=== PATIENT | female | born 1990 | race Caucasian/White ===

== ENCOUNTER 2021-08-09 07:30 | Inpatient (IN) ==
[2021-08-09] MEDS ORDERED: OXYTOCIN 30 UNITS/500 ML BAG IV PRN (08:32)
[2021-08-09] MEDS ORDERED: PENICILLIN G POTASSIUM 6 MU in DEXTROSE 5% 250 ML IV STA (08:36)
[2021-08-09] MEDS: LACTATED RINGER'S 1,000 ML IV PRN ×3 (08:51→23:45)
[2021-08-09] MEDS: OXYTOCIN 30 UNITS/500 ML BAG IV PRN ×2 (09:04→15:51)
--- NOTE | 2021-08-09 09:27 | History & Physical Report ---
Date of Service August 09, 2021 Assessment & Plan (1) Encounter for induction of labor: Plan: 31 y/o at 40 weeks and 2 days coming in for IOL. -Augustin bulb placed. -Started on pitocin and penicillin G. -Vitals WNL. -Continue to monitor heart tracings. (2) Gestational diabetes mellitus (GDM) affecting , antepartum: Admission and Anticipated Discharge Date Admission Date: August 09, 2021 History of Present Illness Chief Complaint: IOL Primary Care Provider: DEREK PCP 31 year old 40 weeks 2 days confirmed via LMP. Complications to include gestational diabetes controlled by diet. Here for IOL. Patient attended OB appointments regularly. Patient taking medications vitamin. Contractions: Denies Fluid or blood: Denies Movement: Present. Allergies Allergy/AdvReac Type Severity Reaction Status Date / Time No Known Allergies Allergy Verified 08/08/21 11:11 Home Medications Medication Instructions Recorded Confirmed Type prenat.vits,tulio,[id number] 1 tab PO DAILY 12/23/20 08/08/21 History acetone (urine) test (Ketone Urine #50 ea 05/26/21 08/08/21 Rx Test) blood sugar diagnostic (OneTouch #150 ea 05/26/21 08/08/21 Rx Verio test strips) blood-glucose meter (OneTouch #1 ea 05/26/21 08/08/21 Rx Verio Flex meter) lancets 33 gauge (OneTouch Delica #150 ea 05/26/21 08/08/21 Rx Plus Lancet) Patient History Medical History (Updated 08/09/21 @ 09:23 by Elliot Hernandez DO) History of chicken pox Status post hysteroscopy Surgical History (Updated 12/23/20 @ 16:20 by Renee Barrientos) S/P gastric bypass S/P laparoscopy S/P tonsillectomy Family History (Updated 12/23/20 @ 16:07 by Renee Barrientos) Mother Diabetes Grandmother (Maternal) Diabetes Denies family history of Ovarian cancer Breast cancer Colorectal cancer Social History (Updated 12/23/20 @ 16:09 by Renee Barrientos) Smoking Status: Former smoker Second Hand Exposure: No; Do You Dip or Chew Tobacco: No; Tobacco Cessation Education Requested by Patient: No Hx Alcohol Use: No Hx Substance Use: No Preferred Language: Greek Communication Ability: Effective Outside Machinist Supervisor Required: No Beliefs That Will Affect Care: None marital status: marital status details: Steven Quiroga (26) [phone] Current Living Situation: Spouse Current Living Situation Comment: Lives with spouse and 1 dog current occupational status: employed 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 Review of Systems Denies fever, chills, sweats Denies shortness of breath, difficulty breathing, chest pain, palpitations, chest pressure. Denies breast pain. Denies dysuria. Denies headache or changes in vision Physical Exam Physical Exam: General: Alert, oriented. No acute distress. Cardiac: Regular rate and rhythm, no murmurs/rubs/gallops. Respiratory: Clear to auscultation bilaterally a/p, no wheezes/rales/rhonchi. No increased work of breathing. Symmetrical chest rise. No respiratory distress. Lower Extremities: No lower extremity edema or swelling. No deep calf pain. Lazaro's negative bilaterally Results & Data ([facility]) Vital Signs (Past 12 Hours) Vital Signs Temp Pulse Resp BP Pulse Ox 08/09/21 09:07 76 108/73 08/09/21 08:53 72 142/59 H 08/09/21 07:48 37.1 C 100 H 16 114/71 100 08/09/21 07:46 100 H 114/71 Laboratory Results - Blood type A+ - Antibody screen: negative - Rubella Immune - VDRL/RPR: Nonreactive - Gonorrhea: Negative - Chlamydia: Negative - HIV: Negative - HbSAg: Negative - GBS: Positive - Glucose tolerance: 131 Monitoring External Monitor FHR: 140 Accel: Present Decel: Not present Contractions: Not present. Resident Activity Tracking Resident Involvement: Resident Care Provided Care Provided: OB Delivery
[2021-08-09 09:29] LABS: Hematocrit (blood only) 32.1 % (37-47); Hemoglobin 10.2 g/dL (12.0-16.0); Mean Corpuscular Hemoglobin 25.3 pg (25-34); Mean Corpuscular Hgb Conc 31.8 g/dL (32-36); Mean Corpuscular Volume 79.7 fL (80-100); Mean Platelet Volume 10.3 fL (7.4-10.4); Platelet Count 299 K/uL (130-400); RDW Coefficient of Variation 15.2 % (11.5-14.5); RDW Standard Deviation 44.5 fL (36.4-46.3); Red Blood Count 4.03 M/uL (4.2-5.4); White Blood Count 7.58 K/uL (4.8-10.8)
[2021-08-09] MEDS: PENICILLIN G POTASSIUM 3 MU in DEXTROSE 5% 100 ML IV PRN ×3 (13:05→21:16)
[2021-08-09] MEDS ORDERED: ePHEDrine sulfate 50 MG/ML AMP ONE (19:15)
[2021-08-09] MEDS ORDERED: SODIUM CHLORIDE 0.9% INJ 10 ML VIAL ONE (19:16)
[2021-08-09] MEDS ORDERED: fentaNYL citrate 100 MCG/2 ML VIAL ONE (19:16)
[2021-08-09] MEDS ORDERED: BUPIVACAINE 0.25% 30 ML VIAL ONE (19:16)
[2021-08-09] MEDS ORDERED: fentaNYL 2MCG/ML ROPIVACAINE 1.25MG/ML 100 ML BAG EPI ONE (19:16)
[2021-08-09] MEDS ORDERED: NALOXONE HCL 0.4 MG/1 ML VIAL/CARP IV PRN (19:34)
[2021-08-09] MEDS ORDERED: NALOXONE HCL 1 MG in SODIUM CHLORIDE 0.9% 1000ML 1,000 ML IV PRN (19:34)
[2021-08-09] MEDS ORDERED: ePHEDrine sulfate 50 MG/ML AMP IV PRN (19:34)
[2021-08-09] MEDS ORDERED: NALBUPHINE HCL INJ 10 MG/ML AMP IV PRN (19:34)
[2021-08-09] MEDS ORDERED: ONDANSETRON INJ 2 MG/ML 2 ML VIAL IV PRN (19:34)
[2021-08-09] MEDS ORDERED: diphenhydrAMINE 50 MG/ML VIAL IV PRN (19:34)
--- NOTE | 2021-08-09 19:35 | Anesthesiology Consultation ---
Date of Service August 09, 2021 Assessment & Plan (1) Encounter for pre-operative examination: Chart Review Chart Review: Patient NOT seen in Pre Admission Testing and Acceptable Risk for Labor Epidural Consults Requested none History Height/Weight Height: 5 ft 4 in Weight: 103.873 kg Allergies Allergy/AdvReac Type Severity Reaction Status Date / Time No Known Allergies Allergy Verified 08/08/21 11:11 Medications Home Medications Medication Instructions Recorded Confirmed Last Taken prenat.vits,tulio,[id number]-zwry-ptydh 1 tab PO DAILY 12/23/20 08/09/21 08/09/21 05:00 acetone (urine) test (Ketone Urine #50 ea 05/26/21 08/08/21 Unknown Test) blood sugar diagnostic (OneTouch #150 ea 05/26/21 08/08/21 Unknown Verio test strips) blood-glucose meter (OneTouch #1 ea 05/26/21 08/08/21 Unknown Verio Flex meter) lancets 33 gauge (OneTouch Delica #150 ea 05/26/21 08/08/21 Unknown Plus Lancet) Active Medications Generic Name Dose Route Start Last Admin Trade Name Freq PRN Reason Stop Dose Admin Lactated Ringer's 1,000 mls @ 125 mls/hr 08/09/21 08:32 08/09/21 19:20 Lr IV 08/11/21 08:31 999 mls/hr .Q8H PRN Administration L&D Protocol Protocol Penicillin G Potassium 3 mu/ 106 mls @ 100 mls/hr 08/09/21 11:32 08/09/21 17:11 Dextrose IV 08/19/21 11:31 100 mls/hr Q4H PRN Administration GBS(+) Until Delivery Oxytocin 30 units in 500 mls @ 26 mls/hr 08/09/21 08:33 08/09/21 15:51 Pitocin IV 08/11/21 08:32 1.56 units/hr .[id number] PRN 26 mls/hr Labor Induction/Augmentation Administration Protocol 1.56 UNITS/HR Past Medical History Medical History History of chicken pox Status post hysteroscopy Past Family History Family History Mother Diabetes Grandmother (Maternal) Diabetes Denies family history of Ovarian cancer Breast cancer Colorectal cancer Past Surgical History Surgical History S/P gastric bypass S/P laparoscopy S/P tonsillectomy Past Anesthesia History No Hx of Anesthesia Complications and No Family Hx of Anesthesia Complications History of PONV No Hx of PONV and No Hx of Motion Sickness Social History Smoking Status: Former smoker Do You Dip or Chew Tobacco: No Hx Alcohol Use: No Hx Substance Use: No substance use type: does not use Physical Exam Vital Signs Last Vital Signs Temp 37.3 C 08/09/21 19:29 Pulse 82 08/09/21 19:57 Resp 18 08/09/21 19:29 BP 125/68 08/09/21 19:37 Pulse Ox 94 08/09/21 19:57 Testing Laboratory Results 08/09/21 08:58
[2021-08-09] MEDS: fentaNYL 2MCG/ML ROPIVACAINE 1.25MG/ML 100 ML BAG EPI PRN (20:02)
[2021-08-10] MEDS: PENICILLIN G POTASSIUM 3 MU in DEXTROSE 5% 100 ML IV PRN ×3 (01:41→09:43)
[2021-08-10] MEDS ORDERED: Nursing to Pharmacy Communication SCH (04:45)
--- NOTE | 2021-08-10 05:22 | Labor Progress Brief Note ---
Date of Service August 10, 2021 Long reviewed with the patient of her current situation and texture she is now 6 cm of the at the cervix stretches somewhat more to the patient's left side there is some caput palpated however the cervix is relatively thin and 90% effaced the heart rate is category 1 at this time I did relay my concerns that there has been slow progress however her uterine contractions have not been adequate until very recently. We are at 32 milliunits on Pitocin and the most recent EPOCH-R of 10 minutes I was able to get 215 [place] units I do not think she meets criteria for failure to progress because there has not only been progress recently but her contractions have only been adequate as a very recent. Will continue to increase on the Pitocin up to 36 milliunits I did offer the patient at this stage to stop the process and perform a however I think this would be premature in both the patient and her ag beatriz that they would like to continue induction with aiming for adequate contractions by the IUPC. We reviewed the process of labor induction adequate contractions. Assessment & Plan Admission and Anticipated Discharge Date Admission Date: August 09, 2021 Results & Data ([facility]) Vital Signs (Past 12 Hours) Vital Signs Temp Pulse Resp BP Pulse Ox 08/10/21 05:15 90 106/55 L 08/10/21 05:12 88 99 08/10/21 05:07 81 99 08/10/21 05:02 96 H 97 08/10/21 05:00 78 100/50 L 08/10/21 04:57 81 99 08/10/21 04:52 87 99 08/10/21 04:47 81 99 08/10/21 04:46 83 110/57 L 08/10/21 04:42 81 100 08/10/21 04:37 86 99 08/10/21 04:32 105 H 100 08/10/21 04:30 112 H 122/58 L 08/10/21 04:29 98.2 F 18 08/10/21 04:27 98 H 100 08/10/21 04:22 78 99 08/10/21 04:17 77 99 08/10/21 04:15 77 121/56 L 08/10/21 04:12 80 99 08/10/21 04:07 78 98 08/10/21 04:02 77 98 08/10/21 04:00 75 118/58 L 08/10/21 03:57 80 98 08/10/21 03:52 77 99 08/10/21 03:47 80 99 08/10/21 03:46 75 120/56 L 08/10/21 03:42 79 99 08/10/21 03:37 75 99 08/10/21 03:32 75 99 08/10/21 03:30 82 118/56 L 08/10/21 03:27 76 98 08/10/21 03:22 82 98 08/10/21 03:17 76 98 08/10/21 03:16 75 119/55 L 08/10/21 03:12 82 98 08/10/21 03:07 88 99 08/10/21 03:02 80 99 08/10/21 03:00 84 115/56 L 08/10/21 02:57 82 98 08/10/21 02:52 80 99 08/10/21 02:47 71 99 08/10/21 02:45 81 108/57 L 08/10/21 02:42 75 100 08/10/21 02:37 80 98 08/10/21 02:32 76 98 08/10/21 02:30 77 103/53 L 08/10/21 02:27 74 98 08/10/21 02:22 74 99 08/10/21 02:17 94 H 99 08/10/21 02:15 78 95/52 L 08/10/21 02:12 79 99 08/10/21 02:07 76 99 08/10/21 02:02 72 99 08/10/21 02:00 98.2 F 73 87/51 L 08/10/21 01:57 75 100 08/10/21 01:52 73 100 08/10/21 01:47 73 99 08/10/21 01:45 78 96/54 L 08/10/21 01:42 75 100 08/10/21 01:37 73 100 08/10/21 01:32 73 100 08/10/21 01:30 74 95/50 L 08/10/21 01:27 76 100 08/10/21 01:22 86 100 08/10/21 01:17 73 98 08/10/21 01:15 74 86/51 L 08/10/21 01:12 75 98 08/10/21 01:07 77 98 05/12/22 01:02 75 98 08/10/21 01:00 73 95/44 L 08/10/21 00:57 73 97 08/10/21 00:52 76 97 08/10/21 00:47 74 99 08/10/21 00:46 71 89/48 L 08/10/21 00:42 77 98 08/10/21 00:37 70 98 08/10/21 00:32 68 99 08/10/21 00:30 71 87/48 L 08/10/21 00:29 18 08/10/21 00:27 77 98 08/10/21 00:22 82 99 08/10/21 00:17 68 99 08/10/21 00:15 72 93/47 L 08/10/21 00:12 68 100 08/10/21 00:07 70 100 08/10/21 00:02 70 92/46 L 99 08/09/21 23:57 70 100 08/09/21 23:56 97.9 F 18 08/09/21 23:52 78 100 08/09/21 23:51 82 91 08/09/21 23:47 78 136/70 100 08/09/21 23:45 73 91 08/09/21 23:42 72 100 08/09/21 23:37 69 100 08/09/21 23:32 70 100 08/09/21 23:30 74 120/66 08/09/21 23:27 68 100 08/09/21 23:22 68 100 08/09/21 23:17 66 100 08/09/21 23:15 72 119/63 08/09/21 23:12 70 100 08/09/21 23:07 69 100 08/09/21 23:02 70 100 08/09/21 23:00 68 120/61 08/09/21 22:57 67 16 100 08/09/21 22:52 66 100 08/09/21 22:47 65 100 05 22:46 65 121/64 05 22:42 63 100 08/09/21 22:37 63 100 08/09/21 22:32 64 100 08/09/21 22:31 65 130/84 08/09/21 22:27 64 99 08/09/21 22:22 67 100 08/09/21 22:17 67 100 08/09/21 22:16 65 132/64 08/09/21 22:12 67 100 08/09/21 22:11 76 91 08/09/21 22:10 98.2 F 18 08/09/21 22:07 76 100 08/09/21 22:02 71 100 08/09/21 22:01 66 131/73 08/09/21 21:57 69 100 08/09/21 21:52 66 100 08/09/21 21:47 67 100 08/09/21 21:45 63 133/70 08/09/21 21:42 64 100 08/09/21 21:37 66 100 08/09/21 21:32 66 100 08/09/21 21:31 18 08/09/21 21:30 61 138/72 08/09/21 21:27 80 91 08/09/21 21:22 66 100 08/09/21 21:17 67 100 08/09/21 21:15 68 08/09/21 21:12 69 100 08/09/21 21:07 68 99 08/09/21 21:02 70 100 08/09/21 21:01 18 08/09/21 21:00 66 120/56 L 08/09/21 20:57 70 100 08/09/21 20:52 68 100 08/09/21 20:47 73 100 08/09/21 20:46 73 107/55 L 08/09/21 20:42 63 100 08/09/21 20:37 74 100 08/09/21 20:32 66 100 08/09/21 20:31 18 08/09/21 20:29 67 134/71 08/09/21 20:27 68 139/72 100 08/09/21 20:25 83 139/72 08/09/21 20:23 63 139/78 08/09/21 20:22 72 100 08/09/21 20:21 69 132/77 08/09/21 20:19 79 135/82 08/09/21 20:17 74 130/75 100 08/09/21 20:15 72 18 137/78 08/09/21 20:13 74 124/65 08/09/21 20:12 73 100 08/09/21 20:11 90 123/59 L 08/09/21 20:10 73 18 91 05/11/22 20:09 74 117/62 08/09/21 20:07 80 127/74 99 08/09/21 20:05 84 18 125/66 08/09/21 20:03 68 134/72 08/09/21 20:02 74 100 08/09/21 20:01 75 117/64 08/09/21 20:00 18 08/09/21 19:59 80 114/63 08/09/21 19:58 82 132/58 L 08/09/21 19:57 81 100 08/09/21 19:52 82 100 08/09/21 19:47 79 100 08/09/21 19:42 72 100 08/09/21 19:37 74 125/68 100 08/09/21 19:32 82 97 08/09/21 19:31 84 92 08/09/21 19:29 99.1 F 18 08/09/21 19:27 72 100 08/09/21 19:22 68 124/67 08/09/21 18:52 81 116/57 L 08/09/21 18:39 75 122/64 08/09/21 18:30 97.9 F 18 08/09/21 18:22 113 H 183/118 H 08/09/21 17:57 81 129/94 08/09/21 17:37 71 116/66 08/09/21 17:22 79 118/79 Coding Level of Care Code None
[2021-08-10] MEDS: fentaNYL 2MCG/ML ROPIVACAINE 1.25MG/ML 100 ML BAG EPI PRN (05:26)
--- NOTE | 2021-08-10 09:05 | Labor Progress Brief Note ---
Date of Service August 10, 2021 Subjective Comfortable, sleeping. Epidural working well with repositioning. Awakened to introduce myself as the oncoming physician, patient with no urge to push, would like to labor down and rest a while before second stage. Patient is very interested in vaginal delivery, hoping to avoid , has mentioned this to her care team during this visit. Assessment & Plan (1) Encounter for induction of labor: Plan: IOL with pitocin, high doses have been required to achieve full dilation, and patient hoping to labor down rather than begin second stage. GDM diet controlled, not having ongoing glucose checks during this admission so far. Will check one before second stage. Admission and Anticipated Discharge Date Admission Date: August 09, 2021 Physical Exam Genitourinary: FHT Cat 1 [place] Q2 at times, with longer intervals at times. Pit @ [address]. Cvx not re-examined at this time, found to be complete per Dr. Moya just prior to the 0730 . Results & Data ([facility]) Vital Signs (Past 12 Hours) Vital Signs Temp Pulse Resp BP Pulse Ox 08/10/21 08:53 83 91 08/10/21 08:52 80 100 08/10/21 08:47 76 100 08/10/21 08:44 81 106/62 08/10/21 08:42 73 100 08/10/21 08:37 73 100 08/10/21 08:32 77 100 08/10/21 08:30 77 108/57 L 08/10/21 08:27 71 100 08/10/21 08:22 71 100 08/10/21 08:17 76 100 08/10/21 08:15 77 101/58 L 08/10/21 08:12 73 100 08/10/21 08:07 71 100 08/10/21 08:02 70 100 08/10/21 08:00 71 109/59 L 08/10/21 07:57 71 100 08/10/21 07:52 69 100 08/10/21 07:47 83 100 08/10/21 07:46 80 118/58 L 08/10/21 07:42 85 100 08/10/21 07:37 72 100 08/10/21 07:33 73 92 08/10/21 07:32 75 98 08/10/21 07:30 71 106/58 L 08/10/21 07:27 74 100 08/10/21 07:22 73 100 08/10/21 07:17 73 100 08/10/21 07:15 98.1 F 20 08/10/21 07:14 74 100/57 L 08/10/21 07:12 73 100 08/10/21 07:07 73 100 08/10/21 07:02 76 100 08/10/21 07:00 71 102/58 L 08/10/21 06:57 71 100 08/10/21 06:52 70 99 08/10/21 06:47 70 100 08/10/21 06:46 73 111/55 L 08/10/21 06:42 73 100 08/10/21 06:37 75 100 08/10/21 06:32 73 100 08/10/21 06:31 18 08/10/21 06:30 76 105/60 08/10/21 06:27 76 100 08/10/21 06:22 81 99 08/10/21 06:17 74 100 08/10/21 06:14 80 105/62 08/10/21 06:12 80 100 08/10/21 06:07 76 100 08/10/21 06:02 71 100 08/10/21 06:00 75 102/57 L 08/10/21 05:57 72 100 08/10/21 05:52 72 99 08/10/21 05:47 72 99 08/10/21 05:45 71 96/56 L 08/10/21 05:42 72 99 08/10/21 05:37 74 99 08/10/21 05:32 77 107/59 L 100 08/10/21 05:27 97 H 99 08/10/21 05:22 87 100 08/10/21 05:17 86 100 08/10/21 05:15 90 106/55 L 08/10/21 05:12 88 99 08/10/21 05:07 81 99 08/10/21 05:02 96 H 97 08/10/21 05:01 97.7 F 18 08/10/21 05:00 78 100/50 L 08/10/21 04:57 81 99 08/10/21 04:52 87 99 08/10/21 04:47 81 99 08/10/21 04:46 83 110/57 L 08/10/21 04:42 81 100 08/10/21 04:37 86 99 08/10/21 04:32 105 H 100 08/10/21 04:30 112 H 122/58 L 08/10/21 04:29 98.2 F 18 08/10/21 04:27 98 H 100 08/10/21 04:22 78 99 08/10/21 04:17 77 99 08/10/21 04:15 77 121/56 L 08/10/21 04:12 80 99 08/10/21 04:07 78 98 08/10/21 04:02 77 98 08/10/21 04:00 75 118/58 L 08/10/21 03:57 80 98 08/10/21 03:52 77 99 08/10/21 03:47 80 99 08/10/21 03:46 75 120/56 L 08/10/21 03:42 79 99 08/10/21 03:37 75 99 08/10/21 03:32 75 99 08/10/21 03:30 82 118/56 L 08/10/21 03:27 76 98 08/10/21 03:22 82 98 08/10/21 03:17 76 98 08/10/21 03:16 75 119/55 L 08/10/21 03:12 82 98 08/10/21 03:07 88 99 08/10/21 03:02 80 99 08/10/21 03:00 84 115/56 L 08/10/21 02:57 82 98 08/10/21 02:52 80 99 08/10/21 02:47 71 99 08/10/21 02:45 81 108/57 L 08/10/21 02:42 75 100 08/10/21 02:37 80 98 08/10/21 02:32 76 98 08/10/21 02:30 77 103/53 L 08/10/21 02:27 74 98 08/10/21 02:22 74 99 08/10/21 02:17 94 H 99 08/10/21 02:15 78 95/52 L 08/10/21 02:12 79 99 08/10/21 02:07 76 99 08/10/21 02:02 72 99 08/10/21 02:00 98.2 F 73 87/51 L 08/10/21 01:57 75 100 05/12/22 01:52 73 100 08/10/21 01:47 73 99 08/10/21 01:45 78 96/54 L 08/10/21 01:42 75 100 08/10/21 01:37 73 100 08/10/21 01:32 73 100 08/10/21 01:30 74 95/50 L 08/10/21 01:27 76 100 08/10/21 01:22 86 100 08/10/21 01:17 73 98 08/10/21 01:15 74 86/51 L 08/10/21 01:12 75 98 08/10/21 01:07 77 98 08/10/21 01:02 75 98 08/10/21 01:00 73 95/44 L 08/10/21 00:57 73 97 08/10/21 00:52 76 97 08/10/21 00:47 74 99 08/10/21 00:46 71 89/48 L 08/10/21 00:42 77 98 08/10/21 00:37 70 98 08/10/21 00:32 68 99 08/10/21 00:30 71 87/48 L 08/10/21 00:29 18 08/10/21 00:27 77 98 08/10/21 00:22 82 99 08/10/21 00:17 68 99 08/10/21 00:15 72 93/47 L 08/10/21 00:12 68 100 08/10/21 00:07 70 100 08/10/21 00:02 70 92/46 L 99 08/09/21 23:57 70 100 08/09/21 23:56 97.9 F 18 08/09/21 23:52 78 100 08/09/21 23:51 82 91 08/09/21 23:47 78 136/70 100 08/09/21 23:45 73 91 08/09/21 23:42 72 100 08/09/21 23:37 69 100 08/09/21 23:32 70 100 08/09/21 23:30 74 120/66 08/09/21 23:27 68 100 08/09/21 23:22 68 100 08/09/21 23:17 66 100 08/09/21 23:15 72 119/63 08/09/21 23:12 70 100 08/09/21 23:07 69 100 08/09/21 23:02 70 100 08/09/21 23:00 68 120/61 08/09/21 22:57 67 16 100 08/09/21 22:52 66 100 08/09/21 22:47 65 100 08/09/21 22:46 65 121/64 08/09/21 22:42 63 100 08/09/21 22:37 63 100 08/09/21 22:32 64 100 08/09/21 22:31 65 130/84 08/09/21 22:27 64 99 08/09/21 22:22 67 100 08/09/21 22:17 67 100 08/09/21 22:16 65 132/64 08/09/21 22:12 67 100 08/09/21 22:11 76 91 08/09/21 22:10 98.2 F 18 08/09/21 22:07 76 100 08/09/21 22:02 71 100 08/09/21 22:01 66 131/73 08/09/21 21:57 69 100 08/09/21 21:52 66 100 08/09/21 21:47 67 100 08/09/21 21:45 63 133/70 08/09/21 21:42 64 100 08/09/21 21:37 66 100 08/09/21 21:32 66 100 08/09/21 21:31 18 08/09/21 21:30 61 138/72 08/09/21 21:27 80 91 08/09/21 21:22 66 100 08/09/21 21:17 67 100 08/09/21 21:15 68 08/09/21 21:12 69 100 08/09/21 21:07 68 99 08/09/21 21:02 70 100 08/09/21 21:01 18 08/09/21 21:00 66 120/56 L 08/09/21 20:57 70 100 Coding Level of Care Code None Diagnoses Encounter for induction of labor Z34.90
--- NOTE | 2021-08-10 12:49 | Delivery Summary ---
Vaginal Delivery Summary Date of Service August 10, 2021 Vaginal Delivery Summary DIAGNOSES: 1. Culp intrauterine at 40w3d gestation. 2. Induction of Labor. 3. Group B Streptococcus Pos. PROCEDURE: Spontaneous vaginal delivery and repair of second degree laceration, R labial laceration. SURGEON: Ginger Villalobos MD. TOOLING SUPERVISOR: None. ESTIMATED BLOOD LOSS: 400 mL. COMPLICATIONS: None. PLACENTA: Spontaneous and intact with a 3-vessel cord. DISPOSITION: Stable to labor and delivery. DESCRIPTION: The patient pushed well and brought the head to in ZAIN position. The 's head was allowed to deliver with contraction force and no further active pushing, with the perineum protected during this time. There was no nuchal cord. The right shoulder was anterior. The shoulders and body delivered without any difficulty, and the infant was placed on the maternal abdomen. It was vigorous and moving all extremities, and making respiratory efforts. The cord was doubly clamped by the MD and then cut by the FOB. The placenta delivered spontaneously and was noted to be intact and with a 3VC. The cervix, vagina and perineum were examined and were found to have bilateral periurethral tears extending down into the vaginal canal, plus a second degree posterior vaginal laceration. The posterior vagina was repaired in usual manner using 2-0 vicryl suture in a running locked manner. The laceration ended at the juncture of the vagina and the perineum with no involvement of the perineal body, so no crown stitch was needed. The left periurethral laceration was hemostatic and did not require repair. The right periurethral laceration had a bleeding area at its deepest point, where it extended along the lateral wall of the vagina. This was therefore closed using 3-0 vicryl beginning at its deepest apex and proceeding outwards towards the labia, in a running locked fashion, with hemostasis being achieved during closure. The fundus was firm and lochia minimal immediately after delivery. [facility] Vaginal Delivery Charge Vaginal Delivery Codes: 52601 global code for the antepartum, delivery, and post-
[2021-08-10] MEDS ORDERED: ACETAMINOPHEN 325 MG TAB PO PRN (13:00)
[2021-08-10] MEDS ORDERED: BENZOCAINE 20% AER SPR 82.5 GM CAN EXT PRN (13:00)
[2021-08-10] MEDS ORDERED: DIPHTHERIA/TETANUS/PERTUSSIS 0.5 ML SYR/VIAL IM ONE (13:00)
[2021-08-10] MEDS ORDERED: HYDROCORTISONE ACETATE 25 MG SUPP PR PRN (13:00)
[2021-08-10] MEDS ORDERED: oxyCODONE/ACETAMINOPHEN 5mg/325mg TAB PO PRN (13:00)
--- NOTE | 2021-08-10 13:26 | Anesthesia Procedure Note ---
Date of Service August 10, 2021 Anesthesia Post Epidural Note Vital Signs Vital Signs: Temp Pulse Resp BP Pulse Ox 98.1 F 81 20 114/57 L 83 L 08/10/21 07:15 08/10/21 13:12 08/10/21 07:15 08/10/21 13:12 08/10/21 10:28 Pain Intensity Bilateral Abdomen: Pain Intensity: 9 Notes Mental Status: alert / awake / arousable and participated in evaluation Nausea / Vomiting: adequately controlled Pain: adequately controlled Airway Patency, RR, SpO2: stable & adequate BP & HR: stable & adequate Hydration State: stable & adequate Neuraxial Anesthesia: was administered and sensory block is resolving Anesthetic Complications: no major complications apparent and Pt Satisfied with anesthetic care Epidural: Removed without complications and With tip intact
[2021-08-10] MEDS: DOCUSATE SODIUM 100 MG CAP PO SCH (19:55)
--- NOTE | 2021-08-11 05:25 | Obstetrical Progress Note ---
Date of Service <Elliot Hernandez DO - Last Filed: 08/11/21 07:08> August 11, 2021 Assessment & Plan <Elliot Hernandez DO - Last Filed: 08/11/21 07:08> (1) Encounter for care and examination after delivery: 31 yo post day 1 from vaginal delivery, doing well. -Continue routine post care. -vital signs reviewed and WNL. (Tmax 37.3) -Blood type A+, GBS +, Rubella Immune -Encourage ambulation, monitor and control pain with Motrin, tylenol PRN, resume regular diet, monitor lochia. -encourage breast feeding. -Discussed discharge with patient, patient would like to go home today. Patient will follow up with Dr. Villalobos in office in 6 weeks. -Discharge pending peds given patient's GBS+ status. <Ginger Villalobos MD - Last Filed: 08/11/21 07:23> (1) Encounter for care and examination after delivery: Subjective <Elliot Hernandez DO - Last Filed: 08/11/21 07:08> Ambulation: ambulating normally Voiding: no voiding problems Passing Gas:: Yes Diet Tolerance:: regular diet Lochia:: Small Feeding Type:: breast feeding Current Pain Level(1-10): 0 Review of Systems Denies fever, chills, sweats Denies shortness of breath, difficulty breathing, chest pain, palpitations, chest pressure. Denies breast pain. Denies dysuria. Denies headache or changes in vision Physical Exam <DO Gege Lucero Last Filed: 08/11/21 07:08> General: Alert, oriented. No acute distress. Cardiac: Regular rate and rhythm, no murmurs/rubs/gallops. Respiratory: Clear to auscultation bilaterally a/p, no wheezes/rales/rhonchi. No increased work of breathing. Symmetrical chest rise. No respiratory distress. Abdomen: Soft, nontender, nondistended. Bowel sounds present. Uterus: Uterine fundus firm, palpable 1 cm below umbilicus. Lower Extremities: No deep calf pain. Results & Data ([facility]) <Elliot Hernandez DO - Last Filed: 08/11/21 07:08> Vital Signs (Past 12 Hours) Vital Signs Temp Pulse Resp BP Pulse Ox 08/11/21 02:51 36.8 C 75 16 96/65 L 96 08/10/21 23:00 36.6 C 74 16 105/69 99 08/10/21 19:08 36.9 C 88 16 127/75 100 <Ginger Villalobos MD - Last Filed: 08/11/21 07:23> Co-Signing Physician Notes Resident Physician Supervision Note: I interviewed and examined the patient. Discussed with Dr. Hernandez and agree with findings and plan as documented in the note. Any exceptions or clarifications are listed here: [ ] Documented By: Ginger Villalobos MD, FACOG Resident Activity Tracking <Elliot Hernandez DO - Last Filed: 08/11/21 07:08> Resident Involvement: Resident Care Provided Care Provided: OB Delivery
[2021-08-11 07:44] LABS: Hematocrit (blood only) 28.2 % (37-47); Mean Corpuscular Hemoglobin 25.4 pg (25-34); Mean Corpuscular Hgb Conc 31.9 g/dL (32-36); Mean Corpuscular Volume 79.4 fL (80-100); Mean Platelet Volume 10.7 fL (7.4-10.4); Platelet Count 290 K/uL (130-400); RDW Coefficient of Variation 15.3 % (11.5-14.5); RDW Standard Deviation 44.7 fL (36.4-46.3); Red Blood Count 3.55 M/uL (4.2-5.4); White Blood Count 14.26 K/uL (4.8-10.8)
[2021-08-11] MEDS ORDERED: PRENATAL VITAMIN 1 TAB PO SCH (08:00)
[2021-08-11] MEDS: IBUPROFEN 600 MG TAB PO PRN ×2 (08:20→13:29)
[2021-08-11] MEDS: DOCUSATE SODIUM 100 MG CAP PO SCH (08:20)
== END 2021-08-11 13:45 | disposition home or self-care (01) | DRG 807 ==
LOC: 4S1 07:30 → 4E2 08-10 16:10

== ENCOUNTER 2025-01-22 19:02 | Observation (INO) ==
[2025-01-22 19:56] LABS: Alanine Aminotransferase 9.0 U/L (7-52); Albumin Globulin Ratio 1.4 (0.9-2); Albumin Level 4.3 gm/dl (3.4-5.0); Alkaline Phosphatase 50.0 U/L (34-104); Anion Gap 8.0 (3-11); Bilirubin,Total 0.3 mg/dl (0.2-1.0); Blood Urea Nitrogen 11.0 mg/dl (6-23); Calcium 9.4 mg/dl (8.6-10.3); Carbon Dioxide 21.0 mmol/L (21-32); Chloride 107.0 mmol/L (98-107); Creatinine Clr Calc Pharmacy 170.7 ml/min; Globulin 3.1 gm/dl (2.5-4.0); Glucose 87.0 mg/dl (70-99(Fasting)); Potassium 3.5 mmol/L (3.5-5.1); Sodium 136.0 mmol/L (136-145); Total Protein 7.4 gm/dl (6.0-8.3)
[2025-01-22] MEDS ORDERED: SODIUM CHLORIDE 0.9% 100 ML IV PRN (20:02)
[2025-01-22 20:06] LABS: Hematocrit (blood only) 22.0 % (37.0-47.0); Hemoglobin 5.9 g/dl (12.0-16.0); Mean Corpuscular Hemoglobin 15.9 pg (25.0-34.0); Mean Corpuscular Volume 59.5 fL (80.0-100.0); Platelet Count 360 K/uL (130-400); RDW Standard Deviation 45.5 fL (36.4-46.3); Red Blood Count 3.70 M/uL (4.20-5.40); White Blood Count 9.84 K/ul (4.8-10.8)
[2025-01-22 20:23] LABS: INR 1.0 (0.9-1.1); Partial Thromboplastin Time 22 Seconds (21-31); Prothrombin Time 10.4 Seconds (9.0-12.0)
[2025-01-22 21:22] LABS: Iron 17.0 mcg/dl (35-150); Transferrin 445.0 mg/dl (200-360)
[2025-01-22 21:24] LABS: Total Iron Binding Cap Calc 623.0 mcg/dl (250-450); Transferrin (FE) Percent Satur 3.0 % (15-50)
[2025-01-22 21:42] LABS: Ferritin 2.9 ng/ml (8-388)
[2025-01-22 22:28] LABS: Folate (Folic Acid),Ser orPlas 12.43 ng/ml (>5.38); Vitamin B12 145.0 pg/ml (180-914)
--- NOTE | 2025-01-22 22:29 | Emergency Department Note ---
Impression & Plan Early stage of , 8 weeks gestation of , Anemia ED Provider Note CHIEF COMPLAINT: Low hemoglobin HISTORY OF PRESENTING ILLNESS: Patient is a 34-year-old female who presents to the emergency department today for complaints of low hemoglobin. She is 8 weeks 5 days and was seen by [facility] today and had routine lab work. Her hemoglobin was noted to be 5.9. She is 2 para 1. She denies any known bleeding and she denies any abdominal pain. She denies any lightheadedness, dizziness, shortness of breath, chest pain, headache, breathing difficulties. Patient denies chest pain, sob, breathing difficulties, abdominal pain, headache, fevers/chills, blood in stool or urine, any recent illness, or any recent travel. REVIEW OF SYSTEMS: See HPI for pertinent positives and pertinent negatives. ALLERGIES: See below MEDICATIONS: See below PAST MEDICAL HISTORY: See below PHYSICAL EXAM: VITALS: Vitals are noted on the nurse's note and reviewed by myself. GENERAL: Non toxic, in no acute distress, non-diaphoretic. SKIN: Capillary refill <2 sec. EYES: PERRLA. EOMI. Conjunctivae without injection, sclerae without icterus. HEART: Regular rate and rhythm without murmurs gallops or rubs. LUNGS: Clear to auscultation bilaterally without wheezes, rales or rhonchi. No retractions or accessory muscle use. ABDOMEN: Positive bowel sounds x 4. Normal tympanic percussion. Soft, nontender to palpation. MUSCULOSKELETAL: No gross musculoskeletal defects. NEURO: Patient was alert and oriented. No focal neurological deficits. DIFFERENTIAL DIAGNOSIS: Anemia, iron deficiency, gross bleeding, hemorrhage, miscarriage, among others. ED COURSE AND MEDICAL DECISION MAKING: HISTORY FROM INDEPENDENT HISTORIAN: History was provided by the patient. MONITOR: Continuous night monitor: Order was placed for continuous night monitor. Patient was placed on the night monitor and continuous pulse ox. Patient was noted to be in normal sinus rhythm at an initial rate of 80 bpm per my interpretation. INTERPRETATION OF LABS: I interpreted the labs with full lab results as below in the lab section of this note. Laboratory results pertinent to the emergent complaint are discussed in the MDM section below. The patient was advised to follow up with their PCP and/or specialist(s) for further outpatient monitoring and management of any abnormal results. INTERPRETATION OF IMAGING: Imaging studies were interpreted by myself and read by radiology as per the imaging section of this note. The patient was advised to follow up with their PCP and/or specialist(s) for further outpatient management of any non-emergent abnormal findings. CHRONIC MEDICAL/SOCIAL CONDITIONS AFFECTING CARE: No social concerns were identified as barriers to patients care. CONSULTATIONS: I had a meaningful discussion about this patient with Dr. Hernandez who agrees with my assessment and the treatment plan. I also consulted with Dr. James from [facility] who recommends admission to medicine as she is only 8 weeks . I also consulted with Dr. Ferraro for admission to the hospital. The patient was accepted. SUMMARY: I examined the patient for complaints of low hemoglobin. A physical exam and history were performed. Nursing notes, EMR, and medication list were personally reviewed. CBC showed no leukocytosis. There was an anemia with hemoglobin of 5.9. No thrombocytopenia. PT/INR and APTT were normal. CMP showed no emergent findings. Hemoccult was negative. Urinalysis showed no leukocytes, nitrates, bacteria. Patient did have an an OB ultrasound earlier today. 1 unit of PRBCs was ordered. Risks and benefits were discussed with the patient who verbalized understanding. Consent was signed. Patient did declined any pain medications or antiemetics here in the emergency department today. I consulted with OBGYN and Dr. Ferraro for admission to the hospital. I have personally spent 30 minutes of critical care time in the direct management of this patient. This includes bedside care, interpretation of diagnostic studies, and testing, discussion with consultants, patient, and family members, and other required patient management activities. This 30 minutes is in excess of all separately billable procedures. DIAGNOSIS: Anemia, 8 weeks TREATMENT PLAN/DISCHARGE INSTRUCTIONS: Admit to hospitalist services. The chart was completed utilizing [employer] Speech voice recognition software.Grammatical errors, random word insertions, pronoun errors, and incomplete sentences are an occasional consequence of this system due to software limitations, ambient noise, and hardware issues.Any formal questions or concerns about the content, text, or information contained within the body of this dictation should be directly addressed to the physician for clarification. Past Med/Surg History Problem List (Updated 01/22/25 @ 22:29 by HAMILTON Boykin) Anemia (Acute) 8 weeks gestation of (Acute) Anemia with 8 completed weeks gestation Gestational diabetes mellitus (GDM) affecting , antepartum Encounter for anatomic survey Early stage of (Acute) Elderly multigravida Obesity affecting , antepartum Medical History Status post hysteroscopy History of chicken pox Surgical History S/P gastric bypass S/P laparoscopy S/P tonsillectomy Family History Mother Diabetes Grandmother (Maternal) Diabetes Denies family history of Ovarian cancer Breast cancer Colorectal cancer Social History Smoking Status: Former smoker Second Hand Exposure: No; Do You Dip or Chew Tobacco: No; Hx Alcohol Use: No Hx Substance Use: No Preferred Language: Salvadorean Communication Ability: Effective Phlebotomist Medical Lab Assistant Required: No Beliefs That Will Affect Care: None marital status: marital status details: Steven Quiroga (30) [phone] Current Living Situation: Spouse and Family Current Living Situation Comment: Lives with spouse, child and 1 dog current occupational status: employed 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 Safe at Home: Yes Assistive Devices: None Allergies Allergies Allergy/AdvReac Type Severity Reaction Status Date / Time No Known Allergies Allergy Verified 01/22/25 14:28 Home Meds Home Medications Medication Instructions Recorded Confirmed PNV no.[id number] PO 01/11/25 01/22/25 [ Gummies] Results & Data (ED) Vital Signs Vital Signs - 24 hr 01/22/25 19:06 01/22/25 19:12 01/22/25 20:29 Temperature 36.6 C Temperature Source Oral Pulse Rate - Lying Pulse Rate - Sitting Pulse Rate - Standing Pulse Rate 93 H 78 Respiratory Rate Blood Pressure - Lying Blood Pressure - Sitting Blood Pressure- Standing Blood Pressure 139/74 Blood Pressure Mean 95 Pulse Oximetry 100 98 Oxygen Delivery Method Room Air Room Air Sepsis Recent Fever Within 48 Hours No Sepsis New/Unexplained Change in Mental Status No Sepsis Action Taken by Nursing No Action Required 01/22/25 21:02 01/22/25 21:49 01/22/25 22:06 Temperature 36.5 C 36.8 C Temperature Source Oral Oral Pulse Rate - Lying 87 Pulse Rate - Sitting 82 Pulse Rate - Standing 81 Pulse Rate 80 80 Respiratory Rate 16 16 Blood Pressure - Lying 113/63 Blood Pressure - Sitting 113/64 Blood Pressure- Standing 114/63 Blood Pressure 111/66 109/63 Blood Pressure Mean 81 78 Pulse Oximetry 100 99 Oxygen Delivery Method Sepsis Recent Fever Within 48 Hours Sepsis New/Unexplained Change in Mental Status Sepsis Action Taken by Nursing 01/22/25 22:21 Temperature 37.1 C Temperature Source Oral Pulse Rate - Lying Pulse Rate - Sitting Pulse Rate - Standing Pulse Rate 79 Respiratory Rate 18 Blood Pressure - Lying Blood Pressure - Sitting Blood Pressure- Standing Blood Pressure 114/65 Blood Pressure Mean 81 Pulse Oximetry 100 Oxygen Delivery Method Sepsis Recent Fever Within 48 Hours Sepsis New/Unexplained Change in Mental Status Sepsis Action Taken by Nursing Laboratory Data 01/22/25 19:02 01/22/25 19:02 Lab Results 01/22/25 01/22/25 Range/Units 19:02 19: WBC 9.84 (4.8-10.8) K/ul RBC 3.70 L (4.20-5.40) M/uL Hgb 5.9 L* (12.0-16.0) g/dl Hct 22.0 L (37.0-47.0) % MCV 59.5 L (80.0-100.0) fL MCH 15.9 L (25.0-34.0) pg MCHC 26.8 L (32.0-36.0) g/dL RDW Std Deviation 45.5 (36.4-46.3) fL RDW Coeff of Batool 23.1 H (11.5-14.5) % Plt Count 360 (130-400) K/uL MPV 9.8 (9.4-12.4) fL PT 10.4 (9.0-12.0) Seconds INR 1.0 (0.9-1.1) APTT 22 (21-31) Seconds PTT Ratio 0.8 Sodium 136 (136-145) mmol/L Potassium 3.5 (3.5-5.1) mmol/L Chloride 107 (98-107) mmol/L Carbon Dioxide 21 (21-32) mmol/L Anion Gap 8 (3-11) BUN 11 (6-23) mg/dl Creatinine 0.51 L (0.6-1.2) mg/dl Est Cr Clr Drug Dosing 170.7 ml/min eGFR 124.76 BUN/Creatinine Ratio 21.6 H (10-20) Glucose 87 (70-99(Fasting)) mg/dl Calcium 9.4 (8.6-10.3) mg/dl Iron 17 L (35-150) mcg/dl TIBC 623 H (250-450) mcg/dl Transferrin 445 H (200-360) mg/dl Transferrin % Sat 3 L (15-50) % Ferritin 2.9 L (8-388) ng/ml Total Bilirubin 0.3 (0.2-1.0) mg/dl AST 10 L (13-39) U/L ALT 9 (7-52) U/L Alkaline Phosphatase 50 (34-104) U/L Total Protein 7.4 (6.0-8.3) gm/dl Albumin 4.3 (3.4-5.0) gm/dl Globulin 3.1 (2.5-4.0) gm/dl Albumin/Globulin Ratio 1.4 (0.9-2) Vitamin B12 145 L (180-914) pg/ml Folate 12.43 (>5.38) ng/ml Blood Type A Positive Antibody Screen NEGATIVE Crossmatch See Detail Discharge Plan Visit Data Chief Complaint: Abnormal Labs/Diagnostic Testing Stated Complaint: BLOOD TRANSFUSION ED Provider: Ryland Hernandez ED Midlevel Provider: Gwendolyn Woodson Discharge Problem: Early stage of , 8 weeks gestation of , Anemia Patient Disposition: Admitted As Inpatient Condition: Good Prescriptions Prescriptions: No Action PNV no.[id number] [ Gummies] PO Referrals Referrals: PCP,NO [Primary Care Provider] - Discharge Problem: Anemia Qualifiers: Anemia type: unspecified type Qualified Code(s): D64.9 - Anemia, unspecified
--- NOTE | 2025-01-23 01:03 | History & Physical Report ---
Date of Service January 23, 2025 Assessment & Plan (1) Anemia: (2) 8 weeks gestation of : (3) S/P gastric bypass: Plan Patient is a 34-year-old female with a past medical history including gastric bypass and current (8 weeks 5 days). Patient was referred by her OB due to a hemoglobin of 5.9. #asymptomatic anemia - Hgb drop 9.0 -> 5.9, Hct 22.0%, BUN 11. Suspect competent of with chronic anemia with malabsorption of iron and B12 with gastric bypass. - ultrasound of abdomen to eval for retroperitoneal bleeding - iron panel, ferritin, b12, folate ordered - 1 u pRBC ordered in ED -> transfusing - H&H 1 hour after transfusion - repeat CBC with AM labs - Hemoccult ordered in ED #current gestation - 8w5d, ANTONIO 08/29/25. Hx of GDM with prior. - OB US 01/23 stable, shows subchorionic hemorrhage surrounding gestational sac #Hx gastric bypass - associated anemia as above. VTE ppx: SCDs, low risk and bleeding risk Dispo: med/tele; possible dc 01/23 Admission and Anticipated Discharge Date Admission Date: 01/23/25 History of Present Illness Chief Complaint: abnormal labs Primary Care Provider: NO PCP Patient is a 34-year-old female with a past medical history including gastric bypass and current (8 weeks 5 days). Patient was referred by her OB due to a hemoglobin of 5.9. Patient seen at bedside. She stated she has been completely asymptomatic of anemia however does endorse recent fatigue which she related to recent and having a 3-year-old at home. She denies any hematemesis, melena, hematochezia, vaginal bleeding, abdominal pain, nausea, vomiting, dizziness, lightheadedness. She stated she has never had a blood or iron transfusion before and has never had a noted history of anemia. Previous records reviewed and appear the patient was mildly anemic with recent with hemoglobin as low as 9.0 in 2021. She does not take any B12, iron, or folic acid supplements at baseline. She denies nicotine or alcohol use. She does not take any medications at baseline. She wishes to be full code. Discussion with ER provider They spoke with OB who recommended admission to medical team and could consult them as needed. Allergies Allergy/AdvReac Type Severity Reaction Status Date / Time No Known Allergies Allergy Verified 01/22/25 14:28 Home Medications Medication Instructions Recorded Confirmed Type PNV no.[id number] PO 01/11/25 01/22/25 History [ Gummies] cyanocobalamin (vitamin B-12) 1,000 mcg IM UD 4 weeks #25 mL 01/23/25 Rx 1,000 mcg/mL injection solution ferrous sulfate 325 mg (65 mg 325 mg PO DAILY #90 tabs 01/23/25 Rx iron) tablet Past Med/Surg History Problem List (Updated 01/22/25 @ 22:29 by HAMILTON Boykin) S/P gastric bypass Anemia (Acute) 8 weeks gestation of (Acute) Anemia with 8 completed weeks gestation Gestational diabetes mellitus (GDM) affecting , antepartum Encounter for anatomic survey Early stage of (Acute) Elderly multigravida Obesity affecting , antepartum Medical History Status post hysteroscopy History of chicken pox Surgical History S/P gastric bypass S/P laparoscopy S/P tonsillectomy Family History Mother Diabetes Grandmother (Maternal) Diabetes Denies family history of Ovarian cancer Breast cancer Colorectal cancer Social History Smoking Status: Never smoker Tobacco Type: Declines Second Hand Exposure: No; Do You Dip or Chew Tobacco: No; Hx Alcohol Use: No Hx Substance Use: No Preferred Language: Montenegrin Communication Ability: Effective Wetlands Technician Required: No Beliefs That Will Affect Care: None marital status: marital status details: Steven Quiroga (30) [phone] Current Living Situation: Spouse Current Living Situation Comment: lives with and daughter current occupational status: 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 Non-toxic appearing. HEENT- EOMI, mucous membranes moist. Hearing grossly intact. Heart-normal S1 and S2. No murmurs, rubs or gallops. Lungs-clear bilaterally, no respiratory distress, no accessory muscle use. Abdomen-normal bowel sounds and soft. No ascites noted. Non-tender. Extremities- no clubbing, cyanosis, or edema. Rheumatologic-normal range of motion. Psychiatric-normal affect. Results & Data Results & Data Vital Signs (Past 12 Hours) Vital Signs Temp Pulse Resp BP Pulse Ox O2 Del Method 01/23/25 00:37 80 18 106/67 98 01/23/25 00:18 79 01/22/25 23:51 36.8 C 77 21 122/69 98 01/22/25 22:51 109/62 01/22/25 22:51 37.1 C 77 15 109/62 99 01/22/25 22:45 76 18 100 01/22/25 22:42 77 17 100 01/22/25 22:30 112/65 01/22/25 22:30 112/65 01/22/25 22:30 112/65 01/22/25 22:24 114/65 01/22/25 22:24 74 16 100 01/22/25 22:21 37.1 C 79 18 114/65 100 01/22/25 22:15 79 19 99 01/22/25 22:07 120/62 01/22/25 22:07 120/62 01/22/25 22:06 79 20 99 01/22/25 22:06 36.8 C 80 16 109/63 99 01/22/25 22:03 74 22 100 01/22/25 22:00 109/63 01/22/25 21:49 36.5 C 80 16 111/66 100 01/22/25 21:48 77 15 100 01/22/25 21:47 111/66 01/22/25 21:47 111/66 01/22/25 21:45 86 20 100 01/22/25 21:30 72 15 100 01/22/25 21:30 104/64 01/22/25 21:30 104/64 01/22/25 21:30 104/64 01/22/25 21:18 85 17 100 01/22/25 21:00 119/67 01/22/25 21:00 119/67 01/22/25 20:57 75 22 100 01/22/25 20:39 91 H 20 100 01/22/25 20:30 110/63 01/22/25 20:29 78 01/22/25 19:12 98 Room Air 01/22/25 19:06 36.6 C 93 H 139/74 100 Room Air Laboratory Results Reviewed CBC, PT/INR, CMP Ordered iron panel, ferritin, B12, folic acid levels Diagnostic Findings reviewed OB ultrasound Ordered abdominal ultrasound Medications Administered ED1U PRBC ECG Additional Comments: ordered Code Status & VTE Plan Code Status full code VTE Prophylaxis Plan VTE Prophylaxis will be ordered: Yes Supervising Physician Co-Signing Physician Notes Attending addendum: I have physically seen this patient, have supervised the CHAUNCEY's activities, and agree with the H&P unless as otherwise noted. Assessment and Plan: The patient is a 34-year-old female with past medical history including gastric bypass, with current at 8 weeks 5 days. She was referred to the emergency department via her OB, due to hemoglobin of 5.9 Asymptomatic anemia- Hemoglobin dropped from 9.0-5.9 Hemoccult stools Complete abdominal pelvic ultrasound ordered with no acute findings of blood loss such as retroperitoneal hematoma. Order iron, ferritin, B12, folate levels, and reticulocyte count Patient to receive 1 unit PRBCs in the ED, and will follow H&H serially Hemoccult all stools Likely an issue with intake and/or malabsorption Current gestation is 8 weeks 5 days. The fetus is at significant risk for relative malnutrition and intrauterine growth retardation due to malabsorption occurs with gastric bypass. In addition to appropriate diet, patient should undergo close dietary counseling with nutrition and be tested appropriately SUPERVISING BROKER reports they will be available for consult. PG Care Time/CCT Total # of Minutes Spent Total Time Spent with Patient: Total time spent is greater than 50% in coordination of care (as documented) at patient's floor/unit and/or counseling patient: Coding Level of Care Code 02524 INT INP/OBS CARE 3/75MIN Diagnoses Anemia D64.9 Anemia type: unspecified type 8 weeks gestation of Z3A.08 S/P gastric bypass Z98.84 (1) Anemia Anemia type: unspecified type Qualified Code(s): D64.9 - Anemia, unspecified
[2025-01-23] MEDS ORDERED: ACETAMINOPHEN 325 MG TAB PO PRN (02:12)
[2025-01-23] MEDS ORDERED: ONDANSETRON INJ 2 MG/ML 2 ML VIAL IV PRN (02:12)
[2025-01-23] MEDS ORDERED: DOCUSATE SODIUM 100 MG CAP PO PRN (02:12)
[2025-01-23] MEDS ORDERED: MELATONIN 3 MG TAB PO PRN (02:12)
[2025-01-23 02:13] LABS: Hematocrit (blood only) 22.3 % (37.0-47.0); Hemoglobin 6.3 g/dl (12.0-16.0)
[2025-01-23] MEDS ORDERED: SODIUM CHLORIDE 0.9% 100 ML IV PRN (02:23)
--- NOTE | 2025-01-23 02:52 | Ultrasound Report ---
EXAM: US abdomen limited CLINICAL HISTORY: R/o retropertioneal bleeding. Patient currently (8w 5d) and referred by OB due to hemoglobin of 5.9. No large bleeds/ hemorrhage visualized. TECHNIQUE: Ultrasound examination of the RUQ was performed in real-time. COMPARISON: None. FINDINGS: Liver: Liver appears normal in size with homogeneous echotexture. No evidence of focal lesions, cysts, or masses. Hepatic vasculature appears normal. Gallbladder: Limited scan is unremarkable. No evidence of gallbladder wall edema or signs of acute cholecystitis. Biliary Tree: No evidence of choledocholithiasis or biliary obstruction. Right Kidney: Right kidney appears normal in size with preserved corticomedullary differentiation. No evidence of hydronephrosis, renal cysts, or masses. Spleen: Liver appears normal in size with homogeneous echotexture. Left Kidney: Left kidney appears normal in size with preserved corticomedullary differentiation. No evidence of hydronephrosis, renal cysts, or masses. Uterus: Gravid uterus, with detectable pulsations in the pole and a heart rate of about 175 BPM. Adnexa: A trace simple fluid visualized in the RLQ/right adnexa, likely physiological. IMPRESSION: 1. A trace simple fluid visualized in the RLQ/right adnexa, likely physiological. 2. Gravid uterus, with detectable pulsations in the pole and a heart rate of about 175 BPM. 3. The rest of the study is unremarkable. RECOMMENDATIONS: Clinical correlation with symptoms and further follow-up as indicated. Electronically signed by Charbel Rodriges 01-23-2025 02:51 AM
[2025-01-23 05:32] VITALS: O2SAT 98
--- NOTE | 2025-01-23 07:49 | Hospitalist Progress Note ---
Date of Service January 23, 2025 Assessment & Plan (1) Anemia: (2) 8 weeks gestation of : (3) S/P gastric bypass: Plan Patient is a 34-year-old female with a past medical history including gastric bypass and current (8 weeks 5 days). Patient was referred by her OB due to a hemoglobin of 5.9. #asymptomatic anemia, iron deficiency anemia - Hgb drop 9.0 -> 5.9, Hct 22.0%, BUN 11. Suspect with chronic anemia with malabsorption of iron and B12 with gastric bypass. - ultrasound of abdomen to eval for retroperitoneal bleeding - iron panel, ferritin, b12, folate ordered Received 2 units PRBC - Hemoglobin trend 5.9 --> 6.3 --> Profoundly iron deficient. Transferrin saturation 3%, ferritin 2.9%, iron 17. Transfuse to threshold of 7.0. Would eventually benefit from Venofer however she is in the first trimester and no safety data regarding use of this in the first trimester, although generally safe and 2nd3rd and low risk of complications due to maternal allergic reaction to Venofer are generally outweighed/less than significant risk to the fetus of severe iron deficiency including association with low birthweight, , increased mortality. Hillary is also likely to have impaired absorption of oral iron due to history of gastric bypass. Alternative treatment includes oral iron and periodic monitoring with transfusion as needed until 2nd3rd trimester. Will review with OB #current gestation - 8w5d on date of admission 01/22. ANTONIO 08/29/25. Hx of GDM with prior. - OB US 01/23 stable, shows subchorionic hemorrhage surrounding gestational sac First trimester , was recommended for medical admission for management of any #Hx gastric bypass - associated anemia as above. VTE ppx: SCDs Dispo: med/tele Admission and Anticipated Discharge Date Admission Date: January 23, 2025 Results & Data Results & Data Vital Signs (Past 12 Hours) Vital Signs Temp Pulse Pulse Pulse Resp BP BP 01/23/25 07:08 72 01/23/25 05:31 36.8 C 82 14 97/58 L 01/23/25 05:04 36.6 C 80 14 96/59 L 01/23/25 04:03 36.8 C 83 14 100/63 01/23/25 03:35 36.9 C 94 H 14 97/58 L 01/23/25 03:06 36.9 C 94 H 14 97/58 L 01/23/25 02:47 36.3 C L 77 16 99/64 L 01/23/25 02:31 80 01/23/25 02:12 75 14 108/69 01/23/25 02:12 01/23/25 01:54 68 18 01/23/25 01:45 37.1 C 75 14 108/69 01/23/25 01:41 75 15 125/46 L 01/23/25 00:37 80 18 106/67 01/23/25 00:18 79 01/22/25 23:51 36.8 C 77 21 122/69 01/22/25 22:51 109/62 01/22/25 22:51 37.1 C 77 15 109/62 01/22/25 22:45 76 18 01/22/25 22:42 77 17 01/22/25 22:30 112/65 01/22/25 22:30 112/65 01/22/25 22:30 112/65 01/22/25 22:24 114/65 01/22/25 22:24 74 16 01/22/25 22:21 37.1 C 79 18 114/65 01/22/25 22:15 79 19 01/22/25 22:07 120/62 01/22/25 22:07 120/62 01/22/25 22:06 79 20 01/22/25 22:06 36.8 C 80 16 109/63 01/22/25 22:03 74 22 01/22/25 22:00 109/63 01/22/25 21:49 36.5 C 80 16 111/66 01/22/25 21:48 77 15 01/22/25 21:47 111/66 01/22/25 21:47 111/66 01/22/25 21:45 86 20 01/22/25 21:30 72 15 01/22/25 21:30 104/64 01/22/25 21:30 104/64 01/22/25 21:30 104/64 01/22/25 21:18 85 17 01/22/25 21:00 119/67 01/22/25 21:00 119/67 01/22/25 20:57 75 22 01/22/25 20:39 91 H 20 01/22/25 20:30 110/63 01/22/25 20:29 78 Pulse Ox Pulse Ox O2 Del Method O2 Del Method 01/23/25 07:08 01/23/25 05:31 98 01/23/25 05:04 97 01/23/25 04:03 98 01/23/25 03:35 100 01/23/25 03:06 99 01/23/25 02:47 100 01/23/25 02:31 01/23/25 02:12 100 Room Air 01/23/25 02:12 100 Room Air 01/23/25 01:54 98 Room Air 01/23/25 01:45 100 Room Air 01/23/25 01:41 99 Room Air 01/23/25 00:37 98 01/23/25 00:18 01/22/25 23:51 98 01/22/25 22:51 01/22/25 22:51 99 01/22/25 22:45 100 01/22/25 22:42 100 01/22/25 22:30 01/22/25 22:30 01/22/25 22:30 01/22/25 22:24 01/22/25 22:24 100 01/22/25 22:21 100 01/22/25 22:15 99 01/22/25 22:07 01/22/25 22:07 01/22/25 22:06 99 01/22/25 22:06 99 01/22/25 22:03 100 01/22/25 22:00 01/22/25 21:49 100 01/22/25 21:48 100 01/22/25 21:47 01/22/25 21:47 01/22/25 21:45 100 01/22/25 21:30 100 01/22/25 21:30 01/22/25 21:30 01/22/25 21:30 01/22/25 21:18 100 01/22/25 21:00 01/22/25 21:00 01/22/25 20:57 100 01/22/25 20:39 100 01/22/25 20:30 01/22/25 20:29 PG Care Time/CCT Total # of Minutes Spent Total Time Spent with Patient: Total time spent is greater than 50% in coordination of care (as documented) at patient's floor/unit and/or counseling patient: Coding Diagnoses Anemia D64.9 Anemia type: unspecified type 8 weeks gestation of Z3A.08 S/P gastric bypass Z98.84 (1) Anemia Anemia type: unspecified type Qualified Code(s): D64.9 - Anemia, unspecified
[2025-01-23 08:02] LABS: Hematocrit (blood only) 25.0 % (37.0-47.0); Hemoglobin 7.3 g/dl (12.0-16.0); Mean Corpuscular Hemoglobin 18.7 pg (25.0-34.0); Mean Corpuscular Volume 64.1 fL (80.0-100.0); Platelet Count 295 K/uL (130-400); RDW Standard Deviation 59.3 fL (36.4-46.3); Red Blood Count 3.90 M/uL (4.20-5.40); White Blood Count 7.64 K/ul (4.8-10.8)
[2025-01-23 08:03] LABS: Immature Granulocytes # (auto) 0.02 K/uL (0.01-0.20); Immature Granulocytes % (auto) 0.3 %
[2025-01-23 08:04] LABS: Anisocytosis Present; Hypochromasia Present; Microcytosis Present; Ovalocytes 1+; Polychromasia 1+; Target Cells 1+; Tear Drop Cells 1+
[2025-01-23 08:07] VITALS: BP 98/62; RESP 12; TEMP 98.4
--- NOTE | 2025-01-23 09:56 | Discharge Summary ---
Discharge Summary Date of Service January 23, 2025 Principal Dx & Hospital Course #1 = Principal Diagnosis (1) Anemia: (2) 8 weeks gestation of : (3) S/P gastric bypass: Plan Patient is a 34-year-old female with a past medical history including gastric bypass and current (8 weeks 5 days). Patient was referred by her OB due to a hemoglobin of 5.9. Her hemoglobin appropriately lisa to 7.3 following transfusion. She felt she had good energy, was not lightheaded or dizzy, was able to ambulate independently asymptomatically and felt comfortable discharge and outpatient follow-up To do as outpatient: 1. Repeat CBC outpatient providers at follow-up this coming week 2. Continue B12 injections 3. Continue oral iron 4. Follow-up with OB after provider meeting to review periodic hemoglobin check, oral iron therapy and transfusion as needed versus Venofer infusion strategy for iron deficiency anemia with past history of gastric bypass #asymptomatic anemia, iron deficiency anemia - Hgb drop 9.0 -> 5.9, Hct 22.0%, BUN 11. Suspect with chronic anemia with malabsorption of iron and B12 with gastric bypass. - US: 1. A trace simple fluid visualized in the RLQ/right adnexa, likely physiological. 2. Gravid uterus, with detectable pulsations in the pole and a heart rate of about 175 BPM. 3. The rest of the study is unremarkable. Received 2 units PRBC with appropriate rise and subsequently stable - Hemoglobin trend 5.9 --> 6.3 --> 7.3 Profoundly iron deficient. Transferrin saturation 3%, ferritin 2.9%, iron 17. Transfuse to threshold of 7.0. Would eventually benefit from Venofer however she is in the first trimester and no safety data regarding use of this in the first trimester, although generally safe and 2nd3rd and low risk of complications due to maternal allergic reaction to Venofer are generally outweighed/less than significant risk to the fetus of severe iron deficiency including association with low birthweight, , increased mortality. Hillary is also likely to have impaired absorption of oral iron due to history of gastric bypass. Alternative treatment to IV iron includes oral iron and periodic monitoring with transfusion as needed until 2nd3rd trimester. Reviewed with OB morning of d/c. For now we will keep on oral iron, and will have a group OB meeting to review whether she should receive IV iron in the first trimester. CBC for stability as outpt this week. #current gestation - 8w5d on date of admission 01/22. ANTONIO 08/29/25. Hx of GDM with prior. - OB 01/23 stable, shows subchorionic hemorrhage surrounding gestational sac #Hx gastric bypass - associated anemia as above. Also with B12 deficiency. Due to impaired absorption has been placed on B12 shots, 1000 mcg MWF for 1 week then 1000 mcg weekly thereafter Admission HPI Per Admitting Provider Patient is a 34-year-old female with a past medical history including gastric bypass and current (8 weeks 5 days). Patient was referred by her OB due to a hemoglobin of 5.9. Patient seen at bedside. She stated she has been completely asymptomatic of anemia however does endorse recent fatigue which she related to recent and having a 3-year-old at home. She denies any hematemesis, melena, hematochezia, vaginal bleeding, abdominal pain, nausea, vomiting, dizziness, lightheadedness. She stated she has never had a blood or iron transfusion before and has never had a noted history of anemia. Previous records reviewed and appear the patient was mildly anemic with recent with hemoglobin as low as 9.0 in 2021. She does not take any B12, iron, or folic acid supplements at baseline. She denies nicotine or alcohol use. She does not take any medications at baseline. She wishes to be full code. Discussion with ER provider They spoke with OB who recommended admission to medical team and could consult them as needed. Discharge Exam General: A&Ox3. NAD. Cooperative. HEENT: Atraumatic, normocephalic. Vision and hearing grossly intact. Pulm: CTAB A&P. -wheezes, -rales, -rhonchi. Symmetrical chest rise. No increased work of breathing. No respiratory distress. Cardiac: RRR, -mrg. Radial pulses intact and symmetrical. Abdominal: Nontender, nondistended, soft. BS present. Discharge Plan Discharge Items Patient Disposition: Home - Self-Care Reason For Visit: ANEMIA Discharge Diagnosis: Iron Deficiency Anemia Condition on Discharge: Good Activity: Resume your previous activity Non-emergency contact: Primary Care Provider Call non-emergency contact if: you have any medication questions, your symptoms worsen and your pain is not controlled Follow-up/Referrals: NitaLin ortiz MD, FACOG [Physician] - ([facility] [employer] followup within 1 week) PCP,NO [Primary Care Provider] - Diet: Regular Addtl Attending Provider Instructions: You are seen in the hospital for low blood levels due to iron deficiency anemia. You did not show evidence of clinically significant bleeding. You have been placed on an iron supplement, ferrous sulfate. Please take ferrous sulfate 325 mg by mouth once daily. This can turn your bowel movements dark/black and be slightly constipating. You may take MiraLAX daily with this to help promote regular bowel movements. You have been placed on vitamin B12 shots. Please take cyanocobalamin 1000 mg shots Saturday and Saturday, and then once weekly thereafter. You are unlikely to absorb oral B12 adequately due to your history of gastric bypass. Due to your history of gastric bypass it is possible that you will not absorb oral iron well. If you have any lightheadedness/dizziness concerning for anemia please seek immediate medical reattention. The OB group is meeting to discuss whether IV iron (Venofer) infusion should be pursued while you are in the first trimester. This is considered safe in the 2nd or 3rd trimester however there is a paucity of data regarding first trimester infusions so this was recommended for discussion amongst the OB group rather than infusion at time of your hospitalization. You should have a CBC ordered to check your blood levels on 01/25/2025 by your [employer]EL[employer], and then as needed based on stability. If you develop any new or worsening symptoms including fever, chills, sweats, chest pain, chest pressure, difficulty breathing, uncontrolled nausea/vomiting, rash, wheezing, passing out or nearly passing out, bleeding, black/bloody bowel movements, or other new or concerning symptoms please call your primary care physician, or call 911 for re-evaluation in the emergency department if you are very concerned. Pending Studies at Discharge: No Stand-Alone Forms: My Open Wager, Smoking Cessation Medications and DC Order Prescriptions: New ferrous sulfate 325 mg (65 mg iron) tablet 325 mg PO DAILY Qty: 90 0RF cyanocobalamin (vitamin B-12) 1,000 mcg/mL solution 1,000 mcg IM UD 28 Days Qty: 25 0RF Rx Instructions: 1,000mcg IM on 01/25, 01/27, and 01/29, then once weekly starting 02/01 Continued PNV no.[id number] [ Gummies] PO Discharge Orders: Discharge Order (Routine); Ordered 01/23/25 Ordered By: Dontrell Jacobson Admission Data Admit Date/Time: 01/23/25 01:16 Attending Provider: Dontrell Jacobson Admit Provider: Iron Kahn Primary Care Provider: PCP,NO Other Providers: Iron Kahn Other Interventions: Discharge Summary Assessment (RN) Last Done: 01/23/25 10:34 Hospital Stay Data Consultations 01/22/25 22:29 ED Decision to Admit Stat Diagnostic Imagining Performed 01/23/25 US abdomen limited Stat Discharge Instructions Given to Patient (Per Discharging Provider) You are seen in the hospital for low blood levels due to iron deficiency anemia. You did not show evidence of clinically significant bleeding. You have been placed on an iron supplement, ferrous sulfate. Please take ferrous sulfate 325 mg by mouth once daily. This can turn your bowel movements dark/black and be slightly constipating. You may take MiraLAX daily with this to help promote regular bowel movements. You have been placed on vitamin B12 shots. Please take cyanocobalamin 1000 mg shots Saturday and Saturday, and then once weekly thereafter. You are unlikely to absorb oral B12 adequately due to your history of gastric bypass. Due to your history of gastric bypass it is possible that you will not absorb oral iron well. If you have any lightheadedness/dizziness concerning for anemia please seek immediate medical reattention. The OB group is meeting to discuss whether IV iron (Venofer) infusion should be pursued while you are in the first trimester. This is considered safe in the 2nd or 3rd trimester however there is a paucity of data regarding first trimester infusions so this was recommended for discussion amongst the OB group rather than infusion at time of your hospitalization. You should have a CBC ordered to check your blood levels on 01/25/2025 by your [employer]EL[employer], and then as needed based on stability. If you develop any new or worsening symptoms including fever, chills, sweats, chest pain, chest pressure, difficulty breathing, uncontrolled nausea/vomiting, rash, wheezing, passing out or nearly passing out, bleeding, black/bloody bowel movements, or other new or concerning symptoms please call your primary care physician, or call 911 for re-evaluation in the emergency department if you are very concerned. Total Time Total Time Spent Total Time Spent (In Minutes): 45 Coding Level of Care Code 51039 INP/OBS DISCH >30 MIN Diagnoses Anemia D64.9 Anemia type: unspecified type 8 weeks gestation of Z3A.08 S/P gastric bypass Z98.84
[2025-01-23 10:36] VITALS: PULSE 75
== END 2025-01-23 11:10 | disposition home or self-care (01) ==
LOC: 2N 19:02 → ED 19:02 → SUATTDRO 01-23 01:16 → 2N 01-23 01:54